=== PATIENT | female | born 1975 | race Caucasian/White ===

== ENCOUNTER 2017-04-27 02:24 | Inpatient (IN) | payer OTHER ==
[~2017-04-27] VITALS: Ht 167.6 cm; Wt 95.8 kg
[2017-04-27] MEDS: THIAMINE HCL 100 MG TABLET PO SCH (00:14)
[2017-04-27] MEDS ORDERED: SERT100T12 PO (02:39)
[2017-04-27] MEDS ORDERED: ACET-2247 PO (02:43)
[2017-04-27] MEDS ORDERED: ZOLP10TA6 PO (02:43)
[2017-04-27 02:49] LABS: BASOPHILS # (AUTO) 0.02 K/uL (0.00-0.20); BASOPHILS % (AUTO) 0.3 % (0.0-2.0); EOSINOPHILS # (AUTO) 0.09 K/uL (0.00-0.70); EOSINOPHILS % (AUTO) 1.35 % (1.0-6.0); HEMATOCRIT 28.3 % (36-46); HEMOGLOBIN 8.8 g/dL (12.0-16.0); LYMPHOCYTES # (AUTO) 2.2 K/uL (1.0-4.8); LYMPHOCYTES % (AUTO) 34.7 % (22.0-44.0); MEAN CORPUSCULAR HEMOGLOBIN 19.9 pg (26.0-34.0); MEAN CORPUSCULAR HGB CONC 30.9 G/dL (31.0-37.0); MEAN CORPUSCULAR VOLUME 64 fL (80-100); MONOCYTES # (AUTO) 0.6 K/uL (0.1-1.0); NEUTROPHILS # (AUTO) 3.5 K/uL (1.8-7.7); NEUTROPHILS % (AUTO) 54.6 % (40.0-70.0); PLATELET COUNT (AUTO) 316 K/uL (150-450); RED BLOOD CELL COUNT(AUTO) 4.39 MIL/uL (4.00-5.20); RED CELL DISTRIBUTION WIDTH 17.4 % (11.5-14.5); WHITE BLOOD COUNT (AUTO) 6.5 K/uL (4.5-11.0)
[2017-04-27 03:02] LABS: ANION GAP 8 mmol/L (8-16); CALCIUM, TOTAL 8.8 mg/dL (8.8-10.5); CARBON DIOXIDE 26 mmol/L (22-29); CHLORIDE 107 mmol/L (98-107); CREATININE 0.66 mg/dL (0.60-1.30); GLOMERULAR FILTR. RATE CALC > 60 mL/min (>60); POTASSIUM 3.9 mmol/L (3.5-5.1); SODIUM SERUM 141 mmol/L (136-145); UREA NITROGEN, BLOOD 8 mg/dL (7-18)
[2017-04-27 03:07] LABS: ACETAMINOPHEN 19 mcg/mL (10-30); ALANINE AMINOTRANSFERASE 15 U/L (12-78); ASPARTATE AMINOTRANSFERASE 15 U/L (15-37); BILIRUBIN,TOTAL 0.3 mg/dL (0.1-1.0); SALICYLATE < 2.8 mg/dL (2.8-20.0); TOTAL PROTEIN, SERUM 7.6 g/dL (6.4-8.2)
[2017-04-27] MEDS ORDERED: LORazepam 2 MG TABLET PO ONE (05:45)
[2017-04-27] MEDS ORDERED: ZOLPIDEM TARTRATE 10 MG TABLET PO PRN (05:45)
[2017-04-27] MEDS ORDERED: OLANZapine 5 MG RAPDIS TABLET PO PRN (05:45)
[2017-04-27 05:53] LABS: RBC MORPHOLOGY COMMENT ABNORMAL RBC MORPH
[2017-04-27 09:03] LABS: ACETAMINOPHEN < 2 mcg/mL (10-30)
[2017-04-27 09:04] LABS: SALICYLATE < 2.8 mg/dL (2.8-20.0)
[2017-04-27] MEDS: LORazepam 2 MG TABLET PO PRN (11:50)
[2017-04-27] MEDS ORDERED: ACETAMINOPHEN 325 MG TABLET PO PRN (13:15)
[2017-04-27] MEDS ORDERED: PROMETHAZINE HCL 25 MG TABLET PO PRN (13:15)
[2017-04-27] MEDS ORDERED: LOPERAMIDE HCL 2 MG CAPSULE PO PRN (13:15)
[2017-04-27] MEDS ORDERED: MAG HYDROX/AL HYDROX/SIMETH ES 30 ML SUSPENSION UDCUP PO PRN (13:15)
[2017-04-27] MEDS ORDERED: GuaiFENesin/D-METHORPHAN [SUGAR-FREE] 200-20MG/10 ML SYRUP UDCUP PO PRN (13:15)
[2017-04-27] MEDS ORDERED: HydrOXYzine PAMOATE 50 MG CAPSULE PO PRN (13:15)
[2017-04-27] MEDS ORDERED: MAGNESIUM HYDROXIDE SUSPENSION 30 ML UDCUP PO PRN (13:15)
[2017-04-27] MEDS ORDERED: HALOPERIDOL LACTATE 5 MG/ML VIAL IM ONE (15:00)
[2017-04-27] MEDS ORDERED: DiphenhydrAMINE HCL 50 MG/ML VIAL IM ONE (15:00)
[2017-04-27] MEDS ORDERED: LORazepam 2 MG/ML VIAL IM ONE (15:00)
[2017-04-28 00:16] VITALS: BP 112/64
[2017-04-28] MEDS: LORazepam 2 MG TABLET PO PRN ×3 (00:26→21:15)
[2017-04-28 08:31] VITALS: BP 101/58
[2017-04-28] MEDS ORDERED: SERTRALINE HCL 50 MG TABLET PO SCH (09:00)
[2017-04-28] MEDS ORDERED: MULTIVITAMINS WITH MINERALS, THERAPEUTIC TABLET PO SCH (09:00)
[2017-04-28] MEDS: FOLIC ACID 1 MG TABLET PO SCH (09:12)
[2017-04-28] MEDS: THIAMINE HCL 100 MG TABLET PO SCH ×2 (09:12→16:36)
[2017-04-28] MEDS ORDERED: GABA-531 PO (14:13)
[2017-04-28] MEDS ORDERED: SERT100T12 PO (14:13)
[2017-04-28 16:31] VITALS: BP 118/72
[2017-04-28] MEDS: GABAPENTIN 300 MG CAPSULE PO SCH (16:37)
[2017-04-28 21:15] VITALS: BP 115/74
[2017-04-29 00:01] VITALS: BP 111/75
[2017-04-29 01:50] VITALS: BP 113/78
[2017-04-29] MEDS: LORazepam 2 MG TABLET PO PRN (01:54)
[2017-04-29 08:01] VITALS: BP 112/75
[2017-04-29] MEDS: THIAMINE HCL 100 MG TABLET PO SCH (08:08)
[2017-04-29] MEDS: GABAPENTIN 300 MG CAPSULE PO SCH (08:08)
[2017-04-29] MEDS: FOLIC ACID 1 MG TABLET PO SCH (08:13)
[2017-04-29] MEDS ORDERED: MULTIVITAMINS WITH IRON TABLET PO SCH (09:00)
[2017-04-29] MEDS ORDERED: SERTRALINE HCL 100 MG TABLET PO SCH (09:00)
== END 2017-04-29 08:20 | disposition home or self-care (01) | DRG 881 ==
LOC: EMS 02:25 → AHU 12:23 → EMS 12:33 → B2X 20:52
PROVIDERS: ADMIT Psychiatry & Neurology Psychiatry; ATTEND Psychiatry & Neurology Psychiatry
DX: F32.9 Major depressive disorder, single episode, unspecified (principal); T42.6X2A Poisoning by other antiepileptic and sedative-hypnotic drugs, intentional self-harm, initial encounter; T43.222A Poisoning by selective serotonin reuptake inhibitors, intentional self-harm, initial encounter; D50.9 Iron deficiency anemia, unspecified; F41.9 Anxiety disorder, unspecified; Z90.13 Acquired absence of bilateral breasts and nipples; Z41.1 Encounter for cosmetic surgery; Z90.722 Acquired absence of ovaries, bilateral; Z83.3 Family history of diabetes mellitus; Z80.3 Family history of malignant neoplasm of breast; Z88.8 Allergy status to other drugs, medicaments and biological substances; Z68.34 Body mass index [BMI] 34.0-34.9, adult; Z91.19 Patient's noncompliance with other medical treatment and regimen; Z98.82 Breast implant status; Z98.84 Bariatric surgery status
CPT/HCPCS: 93005; 99285; G0480; G0481